=== PATIENT | female | born 1995 | race Caucasian/White ===

== ENCOUNTER 2019-03-11 15:03 | Emergency (ER) | payer SELFPAY ==
[~2019-03-11] VITALS: Ht 139.7 cm; Wt 45.4 kg
[2019-03-11 16:07] VITALS: BP_SYST 122
--- NOTE | 2019-03-11 18:48 | NUR ---
Patient to ER bed 3 to gown for evaluation. Side rails up. Report given to Mely BLOCK.
--- NOTE | 2019-03-11 18:55 | NUR ---
Patient arrived in the ED c/o RLQ abdominal pain, vomiting and fevers for the last 4 days. Denied any chest pain or shortness of breath. Denied any diarrhea or chills. Patient is alert and oriented x4, respirations even and unlabored, speaking in full sentences, and ambulating with a steady gait. VSS, pain level 5/10. Informed of the approximate wait time. INstructed to notify ED staff for any changes in condition or worsening of symptoms while waiting to be seen by a provider. Patient verbalized understanding.
[2019-03-11] MEDS ORDERED: NS 500 ML IV SCH (18:58)
[2019-03-11] MEDS ORDERED: NACL 0.9% 1,000 ML IV ONE (18:58)
[2019-03-11] MEDS ORDERED: MORPHINE 4 MG/ML INJ. SYRINGE IVP ONE (19:00)
[2019-03-11] MEDS ORDERED: ONDANSETRON HCL 4 MG/2 ML VIAL IVP ONE (19:00)
--- NOTE | 2019-03-11 19:15 | NUR ---
Urine specimen collected.
--- NOTE | 2019-03-11 19:17 | NUR ---
ER Dr. Jeffrey at bedside examining patient.
[2019-03-11 19:22] LABS: BASOPHILS # (AUTO) 0.1 K/uL (0.0-0.2); EOSINOPHILS # (AUTO) 0.1 K/uL (0.0-0.4); HEMOGLOBIN 13.3 g/dL (12.0-16.0); MONOCYTES # (AUTO) 0.5 K/uL (0.0-1.0)
--- NOTE | 2019-03-11 19:22 | NUR ---
Report given and care transferred to MCKAYLA Cervantes.
[2019-03-11 19:27] LABS: BASOPHILS % (AUTO) 0.8 % (0.0-2.0); EOSINOPHILS % (AUTO) 1.7 % (0.0-4.0); HEMATOCRIT 39.3 % (36-48); LYMPHOCYTES % (AUTO) 39.8 % (20.5-51.5); MEAN CORPUSCULAR HEMOGLOBIN 30 pg (27-31); MEAN CORPUSCULAR HGB CONC 34 % (32-36); MEAN CORPUSCULAR VOLUME 89 fL (79.0-98.0); MONOCYTES % (AUTO) 5.9 % (1.7-9.3); NEUTROPHILS % (AUTO) 51.8 % (40.0-70.0); PLATELET COUNT (AUTO) 263 K/uL (130-430); RED BLOOD CELL COUNT(AUTO) 4.41 MIL/uL (4.2-6.2); RED CELL DISTRIBUTION WIDTH 13.5 % (9.0-15.0); WHITE BLOOD COUNT (AUTO) 7.6 K/uL (4.8-10.8)
[2019-03-11 19:33] LABS: CALCIUM 8.9 mg/dL (8.4-11.0); CREATININE 0.62 mg/dL (0.55-1.30); POTASSIUM 3.5 mmol/L (3.5-5.1)
[2019-03-11 19:38] LABS: BILIRUBIN,URINE NEGATIVE (NEGATIVE); BLOOD, URINE NEGATIVE (NEGATIVE); CLARITY/URINE CLEAR (CLEAR); COLOR,URINE YELLOW (YELLOW); GLUCOSE,URINE NEGATIVE (NEGATIVE); KETONES,URINE NEGATIVE (NEGATIVE); LEUKOCYTE ESTERASE ,URINE NEGATIVE (NEGATIVE); NITRITE, URINE NEGATIVE (NEGATIVE); PROTEIN URINE NEGATIVE (NEGATIVE); UROBILINOGEN,URINE 0.2 (0.2-1.0)
[2019-03-11 19:39] LABS: ALBUMIN 3.9 g/dL (3.4-4.8); TOTAL BILIRUBIN 0.3 mg/dL (0.0-1.0)
[2019-03-11 20:07] LABS: INR 1.1 (0.8-1.2); PROTHROMBIN TIME 10.6 SECS (9.5-12.5)
--- NOTE | 2019-03-11 20:29 | NUR ---
FULL HEAD TO TOE ASSESSMENT; PATIENT PRESENTS TO ER WITH RIGHT LOWER QUADRANT PAIN FOR TWO DAYS; NO TRAUMA, NO OTHER REMARKABLE S/S; PATIENT STATES FEVER WITH N/V
--- NOTE | 2019-03-11 21:46 | NUR ---
REASSESSMENT; PATIENT STATES HER PAIN HAS WORSENED; ERMD ADVISED; OTHERWISE UNCHANGED; DISPOSITION PENDING
--- NOTE | 2019-03-11 21:52 | NUR ---
REASSESSMENT BY ERMD; ACI PER ERMD; IV OUT AND DRESSED AND PATIENT DISCHARGED AMBULATORY WITH FAMILY AND PAIN ADDRESSED BY ERMD
[2019-03-11 21:55] VITALS: BP_SYST 110
== END 2019-03-11 21:52 | disposition home or self-care (01) ==
LOC: SED 15:03
DX: K59.00 Constipation, unspecified (principal); R10.31 Right lower quadrant pain; R11.0 Nausea; R50.9 Fever, unspecified
CPT/HCPCS: 36415; 71045; 74176; 80053; 81003; 82150; 83605; 83690; 85025; 85610; 85730; 87040; 96361; 96374; 96375; 99284; J2270; J2405; J7030